=== PATIENT | female | born 1955 | race Caucasian/White ===

== ENCOUNTER → 2017-09-21 | Outpatient (CLI) | payer OTHER, MEDICARE ==
[~2017-09-21] MED LIST: ABILIFY10 MG PO; AGGRENOX 25 MG1 EACH PO; AMITRIPTYLINE H25 M2 PO; BACTRIM DS TAB1 EACH PO; CENTRUM SILVER1 EAC4 PO; CRESTOR10 MG PO; EFFEXOR XR75 MG PO; FISH OIL 1,001000 M2 PO; FLAGYL500 MG PO; FLOMAX0.4 MG PO; GLYBURIDE 5 MG T5 M1 PO; HYDROCODONE-AP1 EAC6 PO; HYDROCODONE-APA1 TA1 PO; KEFLEX500 MG PO; LANTUS SOL100 UNIT/1 SQ; LEVOTHYROXINE0.05 MG PO; LISINOPRIL5 MG PO; LOMOTIL TABLET1 EACH PO; MACRODANTIN100 MG PO; METFORMIN HCL500 MG PO; NORCO 7.5-3251 EACH PO; NOVOLOG100 UNIT/1 SUBQ; NUEDEXTA 20-101 EACH PO; NYSTATIN 100,0015 G1 TP; OMEPRAZOLE20 M2 PO; PRAVACHOL40 MG PO; PRILOSEC20 MG PO; PROAIR HFA8.5 GM INH; SPIRIVA INH; TESSALON PERLE100 MG PO; VITAMIN D1000 UNI1 PO; VOLTAREN GEL 1100 G2 TOP; ZANAFLEX4 MG PO; ZOFRAN ODT4 MG PO
== END ==
LOC: M.WC 07:33
DX: E11.622 Type 2 diabetes mellitus with other skin ulcer (principal); L89.153 Pressure ulcer of sacral region, stage 3; L98.491 Non-pressure chronic ulcer of skin of other sites limited to breakdown of skin; E11.65 Type 2 diabetes mellitus with hyperglycemia; I10 Essential (primary) hypertension; E03.9 Hypothyroidism, unspecified; E78.2 Mixed hyperlipidemia; G35 Multiple sclerosis; G47.30 Sleep apnea, unspecified; J44.9 Chronic obstructive pulmonary disease, unspecified; F03.90 Unspecified dementia, unspecified severity, without behavioral disturbance, psychotic disturbance, mood disturbance, and anxiety; F33.1 Major depressive disorder, recurrent, moderate; Z85.118 Personal history of other malignant neoplasm of bronchus and lung; Z86.73 Personal history of transient ischemic attack (TIA), and cerebral infarction without residual deficits; Z68.23 Body mass index [BMI] 23.0-23.9, adult

== ENCOUNTER → 2017-09-28 | Outpatient (CLI) | payer OTHER, MEDICARE | LOC: M.WC 01:32 | DX: E11.622 Type 2 diabetes mellitus with other skin ulcer (principal); L89.153 Pressure ulcer of sacral region, stage 3; L98.491 Non-pressure chronic ulcer of skin of other sites limited to breakdown of skin; I10 Essential (primary) hypertension; E78.2 Mixed hyperlipidemia; E03.9 Hypothyroidism, unspecified; G35 Multiple sclerosis; G47.30 Sleep apnea, unspecified; J44.9 Chronic obstructive pulmonary disease, unspecified; F33.1 Major depressive disorder, recurrent, moderate; F03.90 Unspecified dementia, unspecified severity, without behavioral disturbance, psychotic disturbance, mood disturbance, and anxiety; Z85.118 Personal history of other malignant neoplasm of bronchus and lung; Z86.73 Personal history of transient ischemic attack (TIA), and cerebral infarction without residual deficits; Z87.891 Personal history of nicotine dependence ==

== ENCOUNTER → 2017-10-05 | Outpatient (CLI) | payer OTHER, MEDICARE | LOC: M.WC 03:29 | DX: E11.622 Type 2 diabetes mellitus with other skin ulcer (principal); L98.491 Non-pressure chronic ulcer of skin of other sites limited to breakdown of skin; L89.153 Pressure ulcer of sacral region, stage 3; Z85.118 Personal history of other malignant neoplasm of bronchus and lung; G35 Multiple sclerosis; E78.2 Mixed hyperlipidemia; F33.1 Major depressive disorder, recurrent, moderate; Z68.23 Body mass index [BMI] 23.0-23.9, adult; J44.9 Chronic obstructive pulmonary disease, unspecified; Z86.73 Personal history of transient ischemic attack (TIA), and cerebral infarction without residual deficits; E03.9 Hypothyroidism, unspecified; F03.90 Unspecified dementia, unspecified severity, without behavioral disturbance, psychotic disturbance, mood disturbance, and anxiety; Z87.891 Personal history of nicotine dependence ==

== ENCOUNTER → 2017-10-12 | Outpatient (CLI) | payer OTHER, MEDICARE | LOC: M.WC 01:51 | DX: E11.622 Type 2 diabetes mellitus with other skin ulcer (principal); L98.491 Non-pressure chronic ulcer of skin of other sites limited to breakdown of skin; L89.153 Pressure ulcer of sacral region, stage 3; G35 Multiple sclerosis; E78.2 Mixed hyperlipidemia; F33.1 Major depressive disorder, recurrent, moderate; I10 Essential (primary) hypertension; J44.9 Chronic obstructive pulmonary disease, unspecified; E03.9 Hypothyroidism, unspecified; F03.90 Unspecified dementia, unspecified severity, without behavioral disturbance, psychotic disturbance, mood disturbance, and anxiety; Z86.73 Personal history of transient ischemic attack (TIA), and cerebral infarction without residual deficits; Z68.23 Body mass index [BMI] 23.0-23.9, adult; Z85.118 Personal history of other malignant neoplasm of bronchus and lung; Z87.891 Personal history of nicotine dependence ==

== ENCOUNTER → 2017-10-19 | Outpatient (CLI) | payer OTHER, MEDICARE | LOC: M.WC 02:31 | DX: E11.622 Type 2 diabetes mellitus with other skin ulcer (principal); L98.491 Non-pressure chronic ulcer of skin of other sites limited to breakdown of skin; L89.153 Pressure ulcer of sacral region, stage 3; G35 Multiple sclerosis; E78.2 Mixed hyperlipidemia; F33.1 Major depressive disorder, recurrent, moderate; I10 Essential (primary) hypertension; J44.9 Chronic obstructive pulmonary disease, unspecified; E03.9 Hypothyroidism, unspecified; F32.9 Major depressive disorder, single episode, unspecified; F03.90 Unspecified dementia, unspecified severity, without behavioral disturbance, psychotic disturbance, mood disturbance, and anxiety; Z68.23 Body mass index [BMI] 23.0-23.9, adult; Z85.118 Personal history of other malignant neoplasm of bronchus and lung; Z86.73 Personal history of transient ischemic attack (TIA), and cerebral infarction without residual deficits; Z87.891 Personal history of nicotine dependence ==

== ENCOUNTER 2017-10-26 09:08 | Inpatient (IN) | payer OTHER, MEDICARE ==
[~2017-10-26] VITALS: Ht 152.4 cm; Wt 98.4 kg
[2017-10-26] VITALS (12 sets, daily range): BP systolic 91–116; BP diastolic 54–69
[~2017-10-26 09:08] MED LIST changes: -AMITRIPTYLINE H25 M2 PO; -CENTRUM SILVER1 EAC4 PO; -FISH OIL 1,001000 M2 PO; -FLAGYL500 MG PO; -FLOMAX0.4 MG PO; -LOMOTIL TABLET1 EACH PO; -MACRODANTIN100 MG PO; -NOVOLOG100 UNIT/1 SUBQ; -NUEDEXTA 20-101 EACH PO; -PRAVACHOL40 MG PO; -TESSALON PERLE100 MG PO; -VOLTAREN GEL 1100 G2 TOP; -ZANAFLEX4 MG PO; -ZOFRAN ODT4 MG PO
[2017-10-26 10:05] LABS: ABSOLUTE EOSINOPHILS 0.1 thou/uL (0.0-0.7); ABSOLUTE MONOCYTES 0.5 thou/uL (0.0-1.2); ABSOLUTE NEUTROPHILS 3.8 thou/uL (1.6-8.1); BASOPHILS 0.4 %; EOSINOPHILS 1.5 %; HEMATOCRIT 34.3 % (37.0-47.0); LYMPHOCYTES 18.1 %; MCH 30.3 pg (26.0-34.0); MCHC 32.1 g/dL (28.0-37.0); MCV 94.4 fL (80.0-100.0); MONOCYTES 9.3 %; MPV 7.6 fl. (7.2-11.1); NUCLEATED RBCS 0 /100WBC; PLATELET COUNT* 237 thou/uL (150-400); POLYS 70.7 %; RBC 3.63 mil/uL (4.20-5.00); WBC 5.4 thou/uL (4.0-11.0)
[2017-10-26 10:06] LABS: URINE BILIRUBIN NEGATIVE (Negative); URINE BLOOD TRACE (Negative); URINE COLOR YELLOW; URINE GLUCOSE-RANDOM NEGATIVE (Negative); URINE KETONES NEGATIVE (Negative); URINE NITRITE-REFLEX NEGATIVE (Negative); URINE PROTEIN NEGATIVE (Negative); URINE UROBILINOGEN 0.2 E.U./dl (0.2-1.0)
[2017-10-26 10:10] LABS: URINE CLARITY SL HAZY; URINE LEUKOCYTES-REFLEX 3+ (Negative)
[2017-10-26 10:13] LABS: INR 1.1; PROTIME 10.5 Seconds (9.20-11.50)
[2017-10-26 10:14] LABS: ANION GAP 7 mmol/L (7-16); BUN 20 mg/dL (7-18); CALCIUM 9.1 mg/dL (8.5-10.1); CHLORIDE 98 mmol/L (98-107); CO2 27 mmol/L (21-32); CREATININE 0.8 mg/dL (0.6-1.3); GLUCOSE 291 mg/dL (70-99); POTASSIUM 4.1 mmol/L (3.5-5.1); SODIUM 132 mmol/L (136-145)
[2017-10-26 10:14] LABS: SQUAMOUS 0-3 Few /LPF (0-3); WBC CLUMPS Few (None Seen)
[2017-10-26 10:18] LABS: AMORPHOUS PHOSPHATES Many /LPF (None Seen); BACTERIA-REFLEX None Seen /HPF (None Seen); CASTS None Seen /LPF (None Seen); MUCUS None Seen strn/LPF (None Seen); URINE RBC 3-10 Few /HPF (0-2)
[2017-10-26 10:24] LABS: ALBUMIN 2.4 g/dL (3.4-5.0); ALKALINE PHOSPHATASE 59 U/L (46-116); NT-PRO BRAIN NAT PEPTIDE 125 pg/mL (<300); SGOT 21 U/L (15-37); SGPT 16 U/L (30-65); TOTAL BILIRUBIN 0.2 mg/dL (<0.1-1.0); TOTAL PROTEIN 6.9 g/dL (6.4-8.2); TROPONIN-I LEVEL <0.06 ng/mL (<0.06)
[2017-10-26] MEDS ORDERED: ZOFRAN ODT4 MG PO (12:48)
[2017-10-26] MEDS ORDERED: LOMOTIL TABLET1 EACH PO (12:48)
[2017-10-26] MEDS ORDERED: PRAVACHOL40 MG PO (12:49)
[2017-10-26] MEDS ORDERED: FLAGYL500 MG PO (14:21)
[2017-10-26] MEDS ORDERED: MACRODANTIN100 MG PO (14:22)
[2017-10-26] MEDS ORDERED: FLOMAX0.4 MG PO (14:23)
[2017-10-26] MEDS ORDERED: ZANAFLEX4 MG PO (14:24)
[2017-10-26] MEDS ORDERED: AMITRIPTYLINE H25 M2 PO (14:26)
[2017-10-26] MEDS ORDERED: TESSALON PERLE100 MG PO (14:27)
[2017-10-26] MEDS ORDERED: FISH OIL 1,001000 M2 PO (14:30)
[2017-10-26] MEDS ORDERED: CENTRUM SILVER1 EAC4 PO (14:31)
--- NOTE | 2017-10-26 14:49 | NUR ---
PATIENT ADMITTED TO THE FLOOR AT 1220. DNR. AOX2, BUT FORGETFUL. REPEATS "OKAY" OVER AND OVER. STATES SHE GETS STUCK ON WORDS AND CONTINUES TO REPEAT THEM. SINIS TACH ON SUGAR CANE PLANTER. NORMOTENSIVE. AFEBRILE. ON ROOM AIR, WITH O2 SAT 98%. PATIENT END-STAGE M/S. CHAIR BOUND AT HOME, HAS WHEELCHAIR. PATIENT'S STATES THAT HE IS IN THE PROCESS OF PUTTING TRACKS IN FOR LIFT. POSITIVE FOR SEPSIS PROTOCOL. 2L BOLUS IN ER. NOW ON LACTATED RINGERS AT [address] BLAIR. PAIN REPORTED IN RIGHT LEG, WHICH IS CONTRACTED AND HAS MUSCLE SPASMS. WENT HOME TO GET UPDATED MEDICATION LIST, PATIENT TAKES MUSCLE RELAXER AND CREAM FOR SPASMS. PRN HYDROCODNE GIVEN AND PATIENT NOW RESTING COMFORTABLY. WILL CONTINUE TO WORK ON CARE PLAN.
[2017-10-26] MEDS ORDERED: VOLTAREN GEL 1100 G2 TOP (14:54)
--- NOTE | 2017-10-26 15:55 | EKG ---
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 NGUYEN : 1955 Requested By: Robinson Chilel Order Number: [id number] MD: Zev Perez Measurements Intervals [place] Rate: 130 P: 53 DC: 191 QRS: 47 QRSD: 127 T: 85 QT: 354 QTc: 521 Interpretive Statements Sinus tachycardia Multiform ventricular premature complexes Aberrant conduction of SV complex(es) Consider left atrial enlargement Nonspecific intraventricular conduction delay Nonspecific T abnormalities, lateral leads No previous ECG available for comparison Electronically Signed On 10-26-2017 15:55:17 CDT by Zev Perez [email or web address] <ELECTRONICALLY SIGNED> By: Zev Perez MD, [facility] 10/26/17 1555 0913 0913 Zev Perez MD, [facility] /EPI
--- NOTE | 2017-10-26 17:26 | NUR ---
PATIENT PROGRESSING TOWARDS GOALS. REMAINS AOX4, BUT FORGETFUL. HR DECREASED TO 90S TO LOW 100S THROUGHOUT SHIFT. BPS REMAIN SOFT, BUT STABLE. LUNGS REMAIN CLEAR/DIMINISHED. LR INFUSING AT 120 ML/HR PER ORDERS. WOUND TO SACRUM CLEANED AND COVERED IN LARGE MEPILEX. WOUND CARE CONSULTED, PATIENT WAS IN WOUND CARE CENTER, BUT WAS UNABLE TO BE SEEN RELATED TO HYPOTENSION. PAIN IN RIGHT LEG CONTROLLED WITH PRN TIZANIDINE. NEEDS ASSITANCE WITH FEEDING. DENIES FURTHER NEEDS AT THIS TIME.
[2017-10-27] VITALS (11 sets, daily range): BP systolic 86–121; BP diastolic 48–69
--- NOTE | 2017-10-27 06:50 | NUR ---
ASSUMED PATIETN CARE AT 1900. NEEDLE SETTER AND HOURLY ROUNDING COMPLETED DOCUMENTED. FOEY CATH PLACED THIS AM PER PATIENT REQUEST. 500 ML OF VERY CLOUDY, YELLOW URINE. PORT PATENT TO IV FLUIDS. NO COMPLAINTS OF PAIN AFTER APPROX 2300. PATIENT ABLE TO TAKE MEDICATION WITH SMALL SIPS OF WATER. SM AMOUNT OF BM NOTED THIS AM. DRESSING TO COCYX AREA REMAINS INTACT AT THIS TIME.
[2017-10-27 09:28] LABS: ABSOLUTE EOSINOPHILS 0.1 thou/uL (0.0-0.7); ABSOLUTE MONOCYTES 0.6 thou/uL (0.0-1.2); ABSOLUTE NEUTROPHILS 3.8 thou/uL (1.6-8.1); BASOPHILS 0.6 %; EOSINOPHILS 1.7 %; HEMATOCRIT 28.8 % (37.0-47.0); HEMOGLOBIN 9.6 gm/dL (12.0-15.0); LYMPHOCYTES 18.2 %; MCH 31.5 pg (26.0-34.0); MCHC 33.3 g/dL (28.0-37.0); MCV 94.8 fL (80.0-100.0); MONOCYTES 10.4 %; MPV 7.5 fl. (7.2-11.1); NUCLEATED RBCS 0 /100WBC; PLATELET COUNT* 208 thou/uL (150-400); POLYS 69.1 %; RBC 3.04 mil/uL (4.20-5.00); RDW-CV 15.9 % (10.5-14.5); WBC 5.5 thou/uL (4.0-11.0)
[2017-10-27 09:30] LABS: CALCIUM 8.6 mg/dL (8.5-10.1); CREATININE 0.7 mg/dL (0.6-1.3); POTASSIUM 3.7 mmol/L (3.5-5.1)
--- NOTE | 2017-10-27 09:40 | NUR ---
WOUND NURSE: PATIENT SEEN FOR WOUND ASSESSMENT PERTAINING TO PRESSURE ULCER ON SACROCOCCYGEAL AREA. PRESENTS FOLLLOWS: 1.0 X 1.8 X 0.7 CM. FULL THICKNESS TISSUE LOSS WITH DARKER RED GRANULATION TISSUE IN THE WOUND BED. THERE IS A MODERATE AMOUNT OF SANCUINOUS DRAINAGE IN THE DRESSING. THERE IS A RING OF DARK PURPLISH-RED NONBLANCHEABLE PERIWOUND SKIN. PERIWOUND SKIN IS INTACT, BUT WITH HISTORY OF RASH WHICH WAS TREATED WITH NYSTATIN POWDER. CLEANSED WITH SOAP AND WATER, RINSED WITH WATER, THEN PATTED DRY. APPLIED SKIN PREP TO INTACT PERIWOUND TISSUE, PLACED STRIP OF AQUACEL AG UNDER A SQUARE OF AQUACEL AG, THEN COVERED WITH A BORDERED FOAM DRESSING. HEELMEDIX BOOT IS ON RIGHT FOOT AND LOWER LEG, HAS STAGE 1 PRESSURE ULCER ON THE RIGHT FOOT EVIDENCED WITH RED, NONBLANCHEABLE SKIN. PATIENT IS ON A EVERY 2 HOUR TURN SCHEDULE FOR OFFLOADING OF WOUND. SPOUSE WAS INSTRUCTED ON MEASURES TO PROMOTE HEALING AND PREVENT FURTHER WOUND INJURY.
--- NOTE | 2017-10-27 11:49 | NUR ---
Nutrition: Pt admitted for pneumonia. Transferring up to tele today. Assessed for wound. On CHO control diet. Also, receiving vanilla Boost Glucose Control. Wt: 132#. Per ICU rounds, she is eating 100% with assistance. No nutrition interventions needed at this time. Low to Mild risk.
--- NOTE | 2017-10-27 13:44 | NUR ---
CM SPOKE TO THE PATIENT TO DISCUSS HOME SITUATION, DISCHARGE PLANNING, AND TO INFORM OF THE ROLE OF CM. PATIENT ALERT AND ORIENTED. PATIENTS SPOUSE AT THE BEDSIDE AND ANSWERING SOME QUESTIONS FOR THE PATIENT. PATIENT BEDRIDDEN PRIOR TO ADMISSION. PATIENTS ASSIST WITH CARES AT HOME. PATIENT REQUIRES ASSISTANCE WITH MEALS. PATIENT HAS HOSPITAL BED, WHEELCHAIR, AND STAIR LIFT. PATIENTS ALSO INFORMS THAT THEY ARE CURRENTLY INSTALLING A LIFT SYSTEM IN THEIR HOME. PATIENT CURRENTLY ON-SERVICE WITH [facility] (PT/OT AND NURSING) AND WOULD LIKE TO CONTINUE THEIR SERVICES AT D/C. PATIENT AND SPOUSE INFORM THAT THEY PLAN IS FOR THE PATIENT TO RETURN HOME AT D/C. CM WILL REMAIN AVAILABLE TO ASSIST AND FOLLOW NEEDED.
--- NOTE | 2017-10-27 14:15 | NUR ---
RECIEVED O.T. EVAL AND TX ORDERS. PT. IS AT BASELINE NEEDING ASSIST WITH FEEDING AND THE REST OF ADLS. SPOUSE DOES MAX A/DEPENDENT BED TO W/C TRANSFERS. HE IS INSTALLING A LIFT TRACK SYSTEM IN THE HOUSE. SPOUSE IS AWARE OF REPOSITIONING SO HER PRESSURE SORE CAN HEAL. O.T. SERVICES ARE NOT INDICATED AT THIS TIME.
--- NOTE | 2017-10-27 18:55 | NUR ---
PT ALERT TO PERSON AND PLACE. REPORTED TO DR AND SPOUSE. BOTH DR AND SPOUSE SAY THIS IS TYPICAL OF PT. PT HAS DEMENTIA. PT REPOSITIONED. PT REQUIRING PAIN MEDICATION FREQUENTLY. ROTATING BETWEEN TOPICAL AND PO PAIN MEDICATION. PT FED MEALS. PT ATE 90% BREAKFAST 85% LUNCH AND 85% DINNER. PT DRINKING NUTRITIONAL SUPPLEMENTS. PT TRANSFERED TO TELE. FAMILY HAS BEEN WITH PT AND HELPS WITH MEALS. PER PT AND OT PT AT BASELINE ACTIVITY. PT ASKING ABOUT GOING HOME. DISCUSSED PLAN OF CARE WITH PT. [facility] CALLED AND REPORTED THEY NEEDED TO RECEIVE A REFERAL WHEN PT DISCHARGED.
[2017-10-28] VITALS (7 sets, daily range): BP systolic 95–117; BP diastolic 51–79
--- NOTE | 2017-10-28 02:56 | NUR ---
RECIEVED REPORT AND TOOK PT INTO CARE AT 1930. ASSESSMENT COMPLETED CHARTED. PT TURNED Q2HRS, RIGHT LEG CONTRACTED CAUSING PAIN AND GIVEN PRN, BOTTOM WOUND AND RIGHT TOE WOUND COVERED. PT RESTING AT THIS TIME, ABLE TO MAKE SOME NEEDS KNOWN, CALL LIGHT WITHIN REACH. A & O X 2, ON BEDREST, ORR PATIENT AND DRAINING YELLOW URINE W/O DIFFICULTY. WILL CONTINUE WITH PLAN OF CARE.
[2017-10-28 06:32] LABS: HEMOGLOBIN 9.6 gm/dL (12.0-15.0); MCH 31.2 pg (26.0-34.0); MCV 94.6 fL (80.0-100.0); MPV 7.1 fl. (7.2-11.1); RBC 3.06 mil/uL (4.20-5.00); RDW-CV 16.2 % (10.5-14.5); WBC 5.8 thou/uL (4.0-11.0)
[2017-10-28 06:48] LABS: ALBUMIN 1.9 g/dL (3.4-5.0); CALCIUM 8.4 mg/dL (8.5-10.1); CREATININE 0.6 mg/dL (0.6-1.3); TOTAL BILIRUBIN 0.2 mg/dL (<0.1-1.0); TOTAL PROTEIN 5.1 g/dL (6.4-8.2)
--- NOTE | 2017-10-28 09:44 | NUR ---
HESHAM p:[phone], f:[phone]. DC orders, facesheet and H&P will need to be faxed at ar.
--- NOTE | 2017-10-28 18:42 | NUR ---
ASSUMED PT CARE AT 0700 PT IS ALERT AND ORIENTED X 4 PT IS BEDREST PT IS A FALL RISK BED ALARM IS ON, PT IS TURNED Q [address] ON THE MONITOR, PT C/O PAIN GAVE PAIN MEDS THROUGHOUT SHIFT, PT HAS ANTIBIOTICS RUNNING WITH FLUIDS, PT HAS POWER PORT IN LEFT CHEST, PT IS PLEASANT AND COOPERATIVE, FAMILY IN ROOM, PT HEELS OFFLOADED, PT HAS ORR, PT IS A FEEDER PT HAS PERIODS OF FORGETFULNESS, WILL CONTINUE TO MONITOR
[2017-10-29 03:42] VITALS: BP 119/63
[2017-10-29 04:23] LABS: HEMATOCRIT 28.5 % (37.0-47.0); HEMOGLOBIN 9.4 gm/dL (12.0-15.0); MCH 30.9 pg (26.0-34.0); MCHC 32.9 g/dL (28.0-37.0); MPV 7.1 fl. (7.2-11.1); RBC 3.03 mil/uL (4.20-5.00); RDW-CV 16.4 % (10.5-14.5)
[2017-10-29 04:34] LABS: CALCIUM 8.6 mg/dL (8.5-10.1); CREATININE 0.6 mg/dL (0.6-1.3); POTASSIUM 3.6 mmol/L (3.5-5.1)
--- NOTE | 2017-10-29 05:06 | NUR ---
ASSUMED CARE OF PATIENT AT 1900 THE PATIENT REMAINS SR ON THE MONITOR O2 SAT MAINTAINED ON RA CONTINUES TO BEDREST THE ROUTINE REGIMEN CONTINUES TO BE EFFECTIVE FOR SX MANAGEMENT SAFETY INTERVENTIONS CONTINUE BED LOWERED WHEELS LOCKED CALL LIGHT IN REACH SIDE RAILS UP REPORT TO BE GIVEN TO JACKI JI
[2017-10-29 08:00] VITALS: BP 124/69
--- NOTE | 2017-10-29 10:07 | NUR ---
ASSUMED CARE OF PT AT 0730. PT RESTING IN BED. PT A&OX3, FORGETFUL AND CONFUSED AT TIMES. PT SCREAMS OUT AT TIMES. PT DENIES ANY PAIN OR SHORTNESS OF BREATH AT THIS TIME. PT TRACING ST ON THE OFFSET SECOND PRESS OPERATOR. ON RA SAT 94%. ORR TO DEPENDENT DRAINAGE. PT REQUIRES ASSIST WITH ALL MEALS. CONTRACTURES NOTED. IVF. PT TO HAVE CT CHEST TODAY. AM ASSESSMENT CHARTED. MEDICATIONS PER AUG. PT REPOSITIONED EVERY 2 HOURS FOR COMFORT. HOURLY ROUNDING OBSERVED. BED IN LOW POSITION. BED ALARM IN PLACE. FALL PRECAUTIONS IN PLACE. CALL LIGHT WITHIN REACH. WILL CONTINUE PLAN OF CARE.
[2017-10-29 13:05] VITALS: BP 111/71
[2017-10-29 17:23] VITALS: BP 122/71
--- NOTE | 2017-10-29 17:27 | NUR ---
NO ACUTE CHANGES THROUGHOUT SHIFT. REFER TO CHARTING. REMAINED AT BEDSIDE THROUGHOUT SHIFT. PT COMPLAINED OF PAIN TO BILATERAL LEGS. TREATED WITH PRN HYDROCODONE, MUSCLE RELAXER AND TOPICAL CREAM WITH PARTIAL RELIEF. PT REQUIRES ASSIST WITH ALL MEALS. PT HAD CT CHEST TODAY-REFER TO RESULTS. PULMONARY CONSULT IN PLACE FOR RLL MASS, HISTORY LUNG CANCER. PT BLOOD GLUCOSE 56 AT DINNER, JUICE AND CRACKERS GIVEN ALONG WITH DINNER. PT ASYMPTOMATIC WITH HYPOGLYCEMIA. PT CONTINUES TO TRACE ST ON THE PROGRAM COORDINATOR FOR RESIDENCE LIFE. ON RA SAT UPPER 90'S. DENIES ANY SHORTNESS OF BREATH. ORR TO DEPENDENT DRAINAGE. PT INCONT OF BOWEL TODAY. IVF AND IV ABX. CONTRACTURES NOTED. MEDICATIONS PER AUG. PT REPOSITIONED EVERY 2 HOURS FOR COMFORT. HOURLY ROUNDING OBSERVED. BED IN LOW POSITION. BED ALARM IN PLACE. FALL PRECAUTIONS IN PLACE. CALL LIGHT WITHIN REACH. WILL CONTINUE PLAN OF CARE.
[2017-10-29 19:56] VITALS: BP 120/73
[2017-10-29 23:52] VITALS: BP 115/64
--- NOTE | 2017-10-30 02:50 | NUR ---
RECIEVED REPORT AT 1930. ASSESSMENT COMPLETED CHARTED. ABLE TO MAKE SOME NEEDS KNOWN, A & O X 3-4, C/O RIGHT LEG PAIN R/T CONTRACTURE. PT Q2HR TURNS, STAYS OFF BOTTOM DUE TO STAGE 4 COXXYX WOUND. ABT RUNNING IN LAC AND LEFT CHEST PORTACATH WITH NO DIFFICULTY. WILL CONTINUE WITH PLAN OF CARE.
[2017-10-30 04:18] VITALS: BP 112/61
[2017-10-30 08:00] VITALS: BP 97/52
[2017-10-30] MEDS ORDERED: NUEDEXTA 20-101 EACH PO (10:39)
[2017-10-30 12:16] VITALS: BP 110/67
[2017-10-30 16:17] VITALS: BP 97/46
[2017-10-30 19:07] VITALS: BP 127/72
--- NOTE | 2017-10-30 19:54 | NUR ---
ASSUMED PT CARE AT 0730, FULL ASSESMENT DONE CHARTED, PT ORIENTED X3, FORGETFUL AT TIMES, IS DROWSY. BLOOD SUGAR LOW THIS AM, PT GIVEN JUICE AND FOOD AND BP INCREASED. PT DENIED PAIN THIS AM BUT C/O PAIN IN THE AFTERNOON IN LEGS. PT BEGAN CRYING THIS AM, ARRIVED AND STATES SHE TAKES NUEDEXTA, BROUGHT IT FROM HOME, WILL GIVE TO PT THIS EVEING. XANEX ALSO GIVEN. PT ST ON THE MONITOR, VSS. WAS GOING TO HAVE THORACENTESIS, DR HO CANCELED DUE TO LOW AMOUNT OF FLUID. PT AND UPDATED ON PLAN OF CARE. PTS WOUND TO SACRUM HEALING, DRESSING CHANGED. PT TURNED Q2 HR. FALL PRECATUIONS IN PLACE, REPROT GIVEN TO SCAR JI.
[2017-10-30 20:00] VITALS: BP 119/63
[2017-10-31 00:51] VITALS: BP 118/69
[2017-10-31 04:43] VITALS: BP 122/70
--- NOTE | 2017-10-31 07:01 | NUR ---
ASSUMED CARE OF PATIENT AT [address] ON THE MONITOR O2 SAT MAINTAINED ON 2LNC DURING HS CONTINUES TO BE BEDREST FREQUENT COMPLAINTS OF PAIN,ANXIETY THE ROUTINE REGIMEN CONTINUES TO BE EFFECTIVE FOR SX MANAGEMENT RECEIVED HYDROCODONE X 2 DOSES AND ZANAFLEX X 2 PAIN CREAM APPLIED X 2 PRN XANAX X 1 DOSE DURING SHIFT SAFETY INTERVENTIONS CONTINUE BED LOWERED WHEELS LOCKED CALL LIGHT IN REACH SIDE RAILS UP REPORT TO BE GIVEN TO ONCOMING GARRISON
--- NOTE | 2017-10-31 07:40 | CON ---
[address] [address] CONSULTATION Name: CARY WALKER Josse Room: [address] IN .R.#: [id number] Admission: 10/26/17 Attend Phys: Ashley David MD Discharge: Date of : 51 Report #: [id number] THIS REPORT FOR: //name// CC: Rob David REQUESTING PHYSICIAN: Malvin Ivan MD REASON FOR CONSULTATION: Abnormal CT scan. DISCUSSION: The patient is a 62-year-old woman who has a history of a prior stroke, multiple sclerosis. Also, recently was diagnosed with small cell lung cancer, completed radiation and chemotherapy. The exact location where she had her intrathoracic disease is unknown. She was actually admitted here on 10/26/2017 after being seen in the wound care clinic. She was being evaluated for a sacral decubitus ulcer. She was hypotensive and did not look well. She was found to have pneumonia as well as urinary tract infection. She was treated with fluids; was initially, I believe, in the ICU. She has been afebrile throughout this hospital stay. Did have some tachycardia on admission that has improved, though she does continue with a mild resting tachycardia. O2 needs have been quite low, in fact she is on room air. Chest x-ray had revealed pulmonary infiltrates on admission. She clinically was improving. However, she had a CT scan done of her chest yesterday without contrast. This showed infiltrates present on the right as well as a pleural effusion. Some of the densities on the right almost mass like. We were asked to see her. She has had followup with her oncologist (Dr. Engle). Does indicate that she has been through radiation therapy as well as chemotherapy. The whole brain radiation was not pursued given her other medical problems. She makes note that she had "multiple complications" from her chemotherapy, though it is not clear what those were. It is not clear again what the status or the extent of her disease was and which lung it involved. The patient is really not able to tell me that. She does make a note, however, that when she was last seen in the office, there was no evidence of recurrence. She is a former smoker, quitting just over 10 years ago. At that time, she has had a CVA. She also has possible multiple sclerosis. It is extremely limited neurologically. Does require help with feeding. The patient denies having any trouble with p.o. intake. She has not been evaluated by Speech here. She denies ever having a PEG tube. She does acknowledge that she has had prior episodes of pneumonia in [place] [address] CONSULTATION Name: CARY WALKER Room: [address] IN M.R.#: [id number] Admission: 10/26/17 Attend Phys: Ashley David MD Discharge: Date of : 51 Report #: [id number] MEDICATIONS: Currently, here in the hospital, she is on atorvastatin, venlafaxine, levothyroxine, Protonix, aripiprazole, Zosyn, Nystatin topically, insulin as needed, Zosyn, DuoNeb q.i.d., cholecalciferol, vancomycin, diclofenac, tizanidine, p.r.n. hydrocodone and p.r.n. Zofran. PAST MEDICAL HISTORY: Remarkable for the CVA in 2006, probable multiple sclerosis is noted. She has also had a right inguinal abscess requiring drainage, prior TIAs, hypertension, diabetes mellitus type 2, depression, prior urinary tract infections, issues with cellulitis, topical candidiasis. SOCIAL HISTORY: Former smoker as noted. FAMILY HISTORY: Negative for cancer. REVIEW OF SYSTEMS: Obtained from the patient. Denies any difficulty swallowing. No choking. Denies any pain. She does have a cough, but notes it is difficult to try and get sputum expectorated. She does struggle with this. Does report some discomfort in the sacral area. PHYSICAL EXAMINATION: APPEARANCE: Thin, cachectic, chronically ill appearing woman. She is awake, alert. She is answering questions. Generally, able to speak in full sentences. Seems somewhat emotionally labile this morning. Does start to cry easily. It is not clear what is triggering it and she is denying pain except for her sacral area. Denies shortness of breath. So when queried as to why she was crying, she notes she was trying to cough and clear out her secretions. She looks chronically ill. HEENT: Mucous membranes are look dry. NECK: Negative for definite adenopathy. She has a left Port-A-Cath in place. HEART: Tones are regular and mildly tachycardic, currently just over 100 beats per minute. No S3 is heard. LUNGS: Reveal few crackles heard on the right. May have some decreased breath sounds lower part of the left lung, but it is difficult to tell as she is on her side. ABDOMEN: Soft. She denies any tenderness to palpation. EXTREMITIES: Thin with muscle wasting. No definite edema is noted. LABORATORY AND X-RAY FINDINGS: Chest x-ray on admission was reviewed. CT chest done yesterday. She has almost mass-like infiltrate seen on the right side. Moderate size right pleural effusion. We have no other chest x-rays or CT scans for the last couple of years to do a comparison with. On her chemistry, BUN is 9, creatinine is 0.6, potassium is 3.6. Total protein 5.1 with an albumin of 1.9. White blood cell count 5000, hemoglobin 9.4, hematocrit 28.4, platelets 213,000. Prealbumin was 16.3. 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 [place] [address] CONSULTATION Name: CARY WALKER Room: [address] IN [facility]#: [id number] Admission: 10/26/17 Attend Phys: Ashley David MD Discharge: Date of : 51 Report #: [id number] IMPRESSION: 1. Pneumonia, clinically is improving. Blood pressure is better. Low O2 need. She denies symptoms, possibly this could be an aspiration pneumonia, does need to be considered. 2. History of small cell lung cancer, status post chemo and radiation. Reportedly, last imaging studies had not revealed evidence of recurrence or progression of disease. Again, however, those reports and details of the Cancer Center not available here. 3. Right pleural effusion. Maybe parapneumonic. Could also be third spacing given her low protein stores. 4. History of prior cerebrovascular accident and multiple sclerosis. Unfortunately, with her generalized debility, she is at risk for development of pneumonia. 5. Anemia maybe in part related to her cancer and the treatment. RECOMMENDATIONS: 1. Would continue to treat her pneumonia. Consider followup imaging in the form of a CAT scan when she follows up with Oncology. 2. Given the size of the pleural fluid collection noted on a recent CT chest, may not be unreasonable to ask IR to evaluate for possible thoracentesis. Would like to make sure she does not have a parapneumonic effusion or empyema. 3. May also need to consider swallow evaluation. 4. Long-term prognosis certainly appears guarded. <ELECTRONICALLY SIGNED> By: Jeni López MD 10/31/17 0740 1042 0056Jeni López MD /nt
[2017-10-31 08:00] VITALS: BP 107/59
--- NOTE | 2017-10-31 09:14 | NUR ---
assumed pt care at 0730, full assesment done as charted. pt oriented to self and situation, she is very confused this am, Suresh says this is unusual for her. pt sitting up in bed eating breakfast, drinking boost. pt denies pain at this time. had a bm this am. repositioned q2 hr. VSS, ST/PVC's on the monitor. will continue with plan of care.
[2017-10-31 11:58] VITALS: BP 94/54
[2017-10-31 12:36] LABS: HEMATOCRIT 32.2 % (37.0-47.0); HEMOGLOBIN 10.6 gm/dL (12.0-15.0); MCH 30.9 pg (26.0-34.0); MCHC 32.8 g/dL (28.0-37.0); MCV 94.3 fL (80.0-100.0); MPV 6.5 fl. (7.2-11.1); RBC 3.42 mil/uL (4.20-5.00); RDW-CV 16.1 % (10.5-14.5); WBC 5.7 thou/uL (4.0-11.0)
[2017-10-31 12:42] LABS: CALCIUM 8.3 mg/dL (8.5-10.1); CREATININE 0.7 mg/dL (0.6-1.3); POTASSIUM 3.5 mmol/L (3.5-5.1)
--- NOTE | 2017-10-31 15:00 | EKG ---
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1955 Requested By: Ashley David Order Number: [id number] Reading MD: Anthony Briscoe Measurements Intervals [place] Rate: 112 P: 63 NH: 193 QRS: 36 QRSD: 68 T: QT: 390 QTc: 533 Interpretive Statements Sinus tachycardia Low voltage, precordial leads Nonspecific T abnormalities, diffuse leads Prolonged QT interval Compared to ECG 10/26/2017 09:13:04 Prolonged QT interval now present T-wave abnormality still present Electronically Signed On 10-31-2017 15:00:22 CDT by Anthony Briscoe [email or web address] <ELECTRONICALLY SIGNED> By: Anthony Briscoe MD, FACC 10/31/17 1500 1306 1306 Anthony Briscoe MD, [facility] /EPI
[2017-10-31 15:16] VITALS: BP 122/70
--- NOTE | 2017-10-31 15:33 | CON ---
[address] [address] CONSULTATION Name: DENISEHERMINIOBING Loaiza Room: [address] IN M.R.#: [id number] Admission: 10/26/17 Attend Phys: Ashley David MD Discharge: Date of : 51 Report #: [id number] THIS REPORT FOR: //name// CC: Rob David DATE OF SERVICE: 10/26/2017 REASON FOR CONSULTATION: Small cell lung cancer, pneumonia. REQUESTING PHYSICIAN: Dr. David. HISTORY OF PRESENT ILLNESS: The patient is a pleasant 62-year-old woman with history of multiple sclerosis and small cell lung cancer, who was seen by me within a month at cancer center. She had full evaluation for followup of small cell lung cancer. There was no detection of progression of disease. She had completed chemoradiation previously and had a very good result. She was seen in wound clinic for routine evaluation for sacral decubitus ulcer. She was found to have hypotension and she was sent to the Emergency Room. She was found to have UTI and infiltrates in the lung. The patient was admitted to the ICU for hydration, antibiotics and treatment of UTI and pneumonia. Oncology consult is requested. Today, she is feeling better. Does not have fevers or chills. Denies dysuria. Denies shortness of breath. She does not have complaints of cough. Denies headaches. PAST MEDICAL HISTORY: Significant for small cell lung cancer, multiple sclerosis, pneumonia and UTI. She has a history of C. diff and CVA. SOCIAL HISTORY: Has very supportive and very supportive family. Unfortunately, her son recently. She does not smoke currently. FAMILY HISTORY: Noncontributory. REVIEW OF SYSTEMS: See above. PHYSICAL EXAMINATION: GENERAL: Reveals a well-developed, well-nourished female, not in acute distress. VITAL SIGNS: Blood pressure 116/69, heart rate is 116, temperature 97.8 and respirations 12. HEENT EXAMINATION: No thrush. NECK: Supple. LUNGS: Clear. ABDOMEN: Soft. LABORATORY DATA: White count 5.4, hemoglobin 11.4 and platelets 237,000. [place] [address] CONSULTATION Name: CARY WALKER Room: [address]#: [id number] Admission: 10/26/17 Attend Phys: Ashley David MD Discharge: Date of : 51 Report #: [id number] Sodium 132, potassium 4.1, BUN 20 and creatinine 0.8. Urinalysis, +3 leukocytes, 10-25 white cells and trace blood. RADIOLOGIC DATA: Chest x-ray shows perihilar and infrahilar pulmonary infiltrates. ASSESSMENT AND PLAN: 1. Small cell lung cancer. The patient does not have recurrence of disease according to recent scans. Completed chemoradiation therapy, responded very well. Because of her neurological status and multiple complications from chemotherapy, decision was made against prophylactic cranial irradiation. 2. Pneumonia. She probably has mild pneumonia changes on the chest x-ray. It could be related to radiation as well. At this point, I would continue to treat it as pneumonia as chest x-ray does not improve. If her condition does not improve, I would do CT scan. Otherwise, I will continue with regular surveillance scans at cancer center. 3. Urinary tract infection. I agree with management. Thank you very much for allowing me to participate in care of this patient. <ELECTRONICALLY SIGNED> By: Zohra Mahoney MD 10/31/17 1533 1613 Alexx Engle MD /nt
[2017-10-31 17:12] LABS: URINE BILIRUBIN NEGATIVE (Negative); URINE BLOOD TRACE (Negative); URINE CLARITY CLEAR; URINE COLOR YELLOW; URINE GLUCOSE-RANDOM NEGATIVE (Negative); URINE KETONES NEGATIVE (Negative); URINE LEUKOCYTES-REFLEX TRACE (Negative); URINE NITRITE-REFLEX NEGATIVE (Negative); URINE PROTEIN NEGATIVE (Negative); URINE SPECIFIC GRAVITY 1.015 (1.005-1.030)
[2017-10-31 17:36] LABS: BACTERIA-REFLEX None Seen /HPF (None Seen); CASTS None Seen /LPF (None Seen); CRYSTALS None Seen /LPF (None Seen); SQUAMOUS 4-10 Moderate /LPF (0-3); URINE RBC 0-2 Rare /HPF (0-2); URINE WBC-REFLEX 0-5 Rare /HPF (0-5)
[2017-10-31] MEDS ORDERED: NOVOLOG100 UNIT/1 SUBQ (17:39)
[2017-10-31 20:00] VITALS: BP 118/70
[2017-11-01 00:35] VITALS: BP 149/56
[2017-11-01 04:14] VITALS: BP 116/69
[2017-11-01 08:00] VITALS: BP 115/61
[2017-11-01 12:41] VITALS: BP 119/72
[2017-11-01 15:52] VITALS: BP 134/53
--- NOTE | 2017-11-01 19:07 | NUR ---
ASSUMED PT CARE AT 0730, FULL ASSESMENT DONE CHARTED. PT A/O X2, PT DROWSY, C/O PAIN IN RIGHT KNEE. PT NPO THIS AM FOR TESTING. PT DID EAT SMALL AMOUNGT OF LUNCH AND DINNER AND DRANK SOME BOOST. PT HAD VISITOR THIS EVENING, BECAME TEARFUL, XANEX GIVEN. NEW IV STARTED IN LEFT AC. PT TURNED Q2 HR. IS STILL HAVING LOOSE STOOLS MIXED WITH FORMED STOOL. UNABLE TO GET SAMPLE FOR CDIFF. FALL PRECATUIOINS IN PLACE. CALL LIGHT IN REACH. WILL CONTINUE WITH PLAN OF CARE
[2017-11-01 20:00] VITALS: BP 119/62
[2017-11-02 00:06] VITALS: BP 130/78
--- NOTE | 2017-11-02 03:18 | NUR ---
ASSUMED PT CARE AT 19:15 , REPORT RECEIVED FROM NURSE. PT IS ALERT , AWAKE, ORIENTED x4. SINUS TACHY ON THE MONITOR. VITALS SIGNS WITHIN THE NORMAL LIMIT. ASSESSMENT PERFORMED. REFER TO CHARTING. NO CONCERN STATED. DOES COMPAIN OF PAIN IN RIGHT KNEE AREA. TRAMADOL ADMINISTERED ALONG WITH OTHER MEDEICATIONS. Q2 HOURS TURNED PERFORMED AND PERINEUM CARE PROVIDED. SACRUM DRESSING CHANGED , WOUND IS WASHED WITH NORMAL SALINE AND NEW DRESSING PLACED ON. BARRIER CREAM APPLIED IN PERINEUM. IV LINES PATENT. ORR IN PLACE. OFFER SOME BOOST AND ASSIST WITH FEEDING.SLEEP PROMOTED BY DIM LIGHT, QUIETNESS. PT IS CURRENTLY RESTING IN BED. WILL CONTINUE TO MONITOR.
[2017-11-02 04:00] VITALS: BP 113/68
--- NOTE | 2017-11-02 08:00 | NUR ---
VSS, ASSUMED CARE IN THE AM, ASSESSMENT PERFORMED AND CHARTED, FALL PRECAUTIONS IN PLACE AND CALL LIGHT IN REACH, PT IS ON RA AND IS TRACING ST ON THE MONITOR, PT HAS PAIN IN HER RIGHT KNEE AND IS INCONT OF BOWEL, ORR IN PLACE AND IS DRAINING, PT IS A&O3-4 FORGETFUL, IS A Q2 TURN AND REMAINS IN ISO FOR C-DIFF, PT GOAL IS TO PERFORM PASSIVE ROM, WILL FOLLOW WITH PLAN OF CARE.
[2017-11-02 09:00] VITALS: BP 125/65
[2017-11-02 12:17] VITALS: BP 119/68
[2017-11-02 16:22] VITALS: BP 122/76
[2017-11-03] VITALS: BP 108/57
[2017-11-03 04:00] VITALS: BP 121/74
--- NOTE | 2017-11-03 05:49 | NUR ---
ASSUMED PT CARE AT 19;15. REPORT RECEIVED FROM NURSE. PT IS ALERT, AWKAKE, ORIETNED X 4. ;LAYING IN BED. ON CONTACT PRECAUTION. \VITAL SIGNS TAKEM RESULTS ARE WITHIN NORMAL LIMIT ASSESSMENT PERFORMED. IV LINES ARE PATENT. PT TURNESED. TO BE TURNED Q2 HOURS FOR THE WHOLE SHIFT,PT IS ON Q 2 PROTOCOLOL. INCONTENT. WOUND CARE PROVIDED. DRESSING CHANGED BECUSE IT WAS DIRTY. P DOES NOT COMPLAIN OF ANY PAIN . SHE DOES HAVE A LIDOCAINE PATCH ON THE RIGHT KNEE. ORR CATHERTER IN PLACE. SINUS TACCY ON THE MONITOR . IV ANTIBIOTICS ADMINISTERED.
[2017-11-03 05:57] LABS: HEMATOCRIT 33.1 % (37.0-47.0); HEMOGLOBIN 10.8 gm/dL (12.0-15.0); MCH 30.4 pg (26.0-34.0); MCHC 32.6 g/dL (28.0-37.0); MCV 93.2 fL (80.0-100.0); MPV 6.8 fl. (7.2-11.1); RBC 3.55 mil/uL (4.20-5.00); RDW-CV 15.8 % (10.5-14.5); WBC 5.9 thou/uL (4.0-11.0)
[2017-11-03 06:21] LABS: CALCIUM 8.5 mg/dL (8.5-10.1); CREATININE 0.6 mg/dL (0.6-1.3); MAGNESIUM 1.5 mg/dL (1.8-2.4); POTASSIUM 3.2 mmol/L (3.5-5.1)
[2017-11-03 07:54] VITALS: BP 115/67
--- NOTE | 2017-11-03 09:25 | NUR ---
ASSUMED CARE OF PT THIS AM AROUND 0715- INVESTMENT RECOVERY TECHNICIAN IN PLACE ORDERED, TRACING ST THIS AM- UPON ASSESSMENT PT NOTED TO BE RESTING IN BED, EYES CLOSED- PT A&O X3- ORR IN PLACE D/D CLEAR PILY URINE, INCONTINENT OF BOWEL- BED REST IN PLACE WITH Q 2HOUR TURNS- ISOLATION IN PLACE R/T C-DIFF AND MAINTIANED INDICATED- DIMINISHED LUNG SOUNDS NOTED, RESP EVEN AND UN-LABORED- VSS, O2 SAT 96% ON RA- ABDOMEN SOFT/FLAT/NON-TENDER, BS X4 QUADS- PT NOTED TO HAVE LOOSE BM THIS AM- CONTRACTORS NOTED IN UE AND LE- BOOTS IN PLACE TO BILATERAL FEET INDICATED- DRESSING TO COCCYX REPORTED TO BE CHANGED ON PRIOR SHIFT R/T BEING SOILED- DRESSING REMIANS C/D/I THIS AM- IV NOTED TO LEFT AC INTACT AND SL- LEFT CHEST PORT IN PLACE WITH NO S/S INFECTION- IV ABT INFUSSING THIS AM PRESCIBED- K+ NOTED ATY 3.2, AND MAG 1.5- NOTIFIED WITH ELECTROLYTE REPLACEMENT ORDERED, WILL BE REPLACED THIS SHIFT PER PROTOCOL- PT NOTED TO BE MOANING AND CRYIN IN RELATION TO RIGHT KNEE PAIN- PT REPOSITIONED WITH PRN TRAMADOL GIVEN AT 0901- POOR PO INTAKE NOTED THIS AM WITH BREAKFAST- CALL LIGHT AND PERSONAL BELONGINGS WITH IN REACH- HOULRY ROUNDS IN PLACE R/T SAFETY/NEEDS- ALL NEEDS MET AT THIS TIME-[facility]
[2017-11-03 12:00] VITALS: BP 90/50
--- NOTE | 2017-11-03 12:14 | NUR ---
WOUND CARE NOTE: REASSESSMENT OF SACROCOCCYGEAL WOUND. FULL THICKNESS PRESSURE ULCER, UNSTAGEABLE. CHINYERE-WOUND DESTRUCTION IS RED, MOIST. CENTER OF WOUND BED IS PALE, YELLOW. SCANT AMOUNTS OF DRAINAGE. WOUND IN ITS ENTIRETY NOW MEASURES 2.5X3X0.5. CLEANSED WOUND WITH WOUND CLEANSER, PATTED DRY. APPLIED AQUACEL AG TO WOUND BED AND SECURED WITH BORDERED FOAM. PATIENT ALSO HAS AN ULCERATION POSTERIOR, CHINYERE-ANAL. BELIEVE THIS TO BE RELATED TO THE FREQUENT STOOLS. APPLIED THE BORDERED FOAM OVER THIS AREA. ASSISTED CLEANSING PATIENT AFTER INCONTINENT OF STOOL EPISODE. PATIENT WAS TURNED TO LEFT SIDE. EDUCATED PATIENT ON FIDINGS OF WOUND ASSESSMENT AND ENCOURAGED TO KEEP OFF OF THE WOUND BY TURNING SIDE TO SIDE. IN ROOM AND HELPS WITH TURNS AND CLEANSING PATIENT. RECOMMEND LOW AIR LOSS MATTRESS-EDUCATED PATIENT AND SPOUSE ON THIS, COMMUNICATED UNDERSTANDING. RECOMMEND CONTINUE WITH CURRENT POC ADD LOW AIR LOSS MATTRESS ENCOURAGE GOOD NUTRITION FOLLOW UP IN WOUND CENTER UPON DISCHARGE.
[2017-11-03 16:32] VITALS: BP 108/56
[2017-11-03 18:37] LABS: MAGNESIUM 1.5 mg/dL (1.8-2.4); POTASSIUM 3.8 mmol/L (3.5-5.1)
[2017-11-03 20:00] VITALS: BP 98/56
[2017-11-04 00:15] VITALS: BP 114/64
--- NOTE | 2017-11-04 04:13 | NUR ---
ASSUMED CARE OF PT AT 1930. PT OBSERVED RESTING WITH EYES CLOSED. NURSING ASSESSMENT COMPLETED AT START OF SHIFT, PT ON BLANK DRILLER TRACING SINUS RHYTHM. Q2H REPOSITIONING COMPLETED, HOURLY ROUNDING COMPLETED, PT CONTINUES TO HAVE DIARRHEA THIS SHIFT, FALL PRECAUTIONS IN PLACE, MAGNESIUM REPLACED, SEE EMAR FOR DOCUMENTATION. PRN PAIN MEDICATION ADMINISTERED THIS SHIFT. CALL LIGHT WITHIN REACH.
[2017-11-04 04:15] VITALS: BP 131/70
[2017-11-04 08:00] VITALS: BP 112/62
--- NOTE | 2017-11-04 11:06 | NUR ---
OT REVIEWED PT FILE. PT IS AT HER BASELINE. PT IS BEDRIDDEN AND REQUIRES ASSIST WITH ALL SELF-CARES, USES A LIFT FOR MOBILITY. PER NOTES, SPOUSE UNDERSTANDS POSITIONING NEEDS AND HOW TO OFF-LOAD WEIGHT TO HEAL PRESSURE SORE. DISCHARGE OT ORDER
--- NOTE | 2017-11-04 11:29 | NUR ---
P.T. ORDERS RECEIVED TODAY, 11/04/17. ORDERS PREVIOUSLY RECEIVED AND EVAL COMPLETED 10/26/17. PT DISCHARGED FROM P.T. SERVICES SHE IS FUNCTIONING AT BASELINE. PT IS PRIMARILY DEPENDENT FOR CARES, PROVIDED BY SPOUSE. SHE IS DEPENDENT FOR TRANSFERS WITH MANUAL OR MECHANICAL LIFT. PER O.T. SPOUSE HAS INDICATED UNDERSTANDING OF OFF-LOADING FOR SKIN PROTECTION. ACUTE P.T. INTERVENTION NOT INDICATED AT THIS TIME.
[2017-11-04 12:00] VITALS: BP 107/58
[2017-11-04 12:35] LABS: CALCIUM 8.4 mg/dL (8.5-10.1); CREATININE 0.7 mg/dL (0.6-1.3); POTASSIUM 3.5 mmol/L (3.5-5.1)
[2017-11-04 15:13] VITALS: BP 107/58
--- NOTE | 2017-11-04 15:16 | NUR ---
Pt to dc home today with services. JAGUAR faxed referral, orders, med list to [facility] at fax number [phone]. JAGUAR called [facility] intake and spoke with Rubina who said that pt was active with [facility] and that they would see pt tomorrow, Sunday 11/05.
[2017-11-04 16:00] VITALS: BP 100/58
--- NOTE | 2017-11-04 19:05 | NUR ---
ASSUMED PT CARE AT 0730, FULL ASSESMENT DONE CHARTED. PT A/O X3, SLIGHTLY FORGETFUL. PTS VSS, SR-ST ON THE MONITOR WITH PVC'S. DISCHARGE ORDERS RECIEVED FOR PT TO GO HOME, DISCUSSED THE PLAN WITH DR STEWART ABOUT IF HE THINKS PT NEEDS SKILLED. SPOKE TO PTS , HE STATES PT HAS REFUSED SKILLED IN THE PAST. PHYSICAL THERAPY WAS RECONSULTED TO EVALUATE, PT STATES THAT PT IS AT BASELINE. PTS COCCYX WOUND ASSESED, DRESSING CHANGED AND DISCHARGE PICTURES TAKEN. CHEST PORT DEACCESED,REVIEWED MEDS AND DISCHARGE PLAN WITH PT AND . PT LEFT UNIT AT APPROX 1800
== END 2017-11-04 17:48 | disposition home health service (06) | DRG 689 ==
LOC: M.TBA-ER 11:13 → M.2W 11:13 → M.ICU 12:15 → M.2W 10-27 12:15
PROVIDERS: Emergency Medicine Emergency Medical Services; Family Medicine; Internal Medicine; ADMIT Internal Medicine
DX: N39.0 Urinary tract infection, site not specified (principal); J18.9 Pneumonia, unspecified organism; I69.951 Hemiplegia and hemiparesis following unspecified cerebrovascular disease affecting right dominant side; J90 Pleural effusion, not elsewhere classified; R65.10 Systemic inflammatory response syndrome (SIRS) of non-infectious origin without acute organ dysfunction; A04.72 Enterocolitis due to Clostridium difficile, not specified as recurrent; I95.9 Hypotension, unspecified; E11.9 Type 2 diabetes mellitus without complications; I10 Essential (primary) hypertension; J44.9 Chronic obstructive pulmonary disease, unspecified; F32.9 Major depressive disorder, single episode, unspecified; D64.9 Anemia, unspecified; Z66 Do not resuscitate; R91.8 Other nonspecific abnormal finding of lung field; R53.83 Other fatigue; Z92.21 Personal history of antineoplastic chemotherapy; Z87.891 Personal history of nicotine dependence; Z79.82 Long term (current) use of aspirin; Z79.899 Other long term (current) drug therapy; Z85.118 Personal history of other malignant neoplasm of bronchus and lung

== ENCOUNTER 2017-11-10 10:49 | Inpatient (IN) | payer OTHER, MEDICARE ==
[~2017-11-10] VITALS: Ht 160 cm; Wt 62.3 kg
[2017-11-10 11:09] VITALS: BP 97/55
[2017-11-10 11:49] LABS: ABSOLUTE LYMPHOCYTES 0.6 thou/uL (0.8-5.3); ABSOLUTE MONOCYTES 0.5 thou/uL (0.0-1.2); ABSOLUTE NEUTROPHILS 4.8 thou/uL (1.6-8.1); BASOPHILS 0.3 %; EOSINOPHILS 0.7 %; HEMATOCRIT 34.4 % (37.0-47.0); HEMOGLOBIN 11.2 gm/dL (12.0-15.0); MCH 30.8 pg (26.0-34.0); MCHC 32.6 g/dL (28.0-37.0); MCV 94.6 fL (80.0-100.0); MPV 7.5 fl. (7.2-11.1); NUCLEATED RBCS 0 /100WBC; PLATELET COUNT* 237 thou/uL (150-400); RBC 3.64 mil/uL (4.20-5.00); RDW-CV 16.1 % (10.5-14.5)
[2017-11-10 11:53] LABS: CALCIUM 9.4 mg/dL (8.5-10.1); POTASSIUM 4.4 mmol/L (3.5-5.1)
[2017-11-10 11:55] LABS: APTT 25.9 Seconds (25.0-31.3); INR 1.1; PROTIME 10.5 Seconds (9.20-11.50)
[2017-11-10 11:58] LABS: ALBUMIN 2.6 g/dL (3.4-5.0); TOTAL BILIRUBIN 0.2 mg/dL (<0.1-1.0); TOTAL PROTEIN 7.3 g/dL (6.4-8.2)
[2017-11-10 12:34] LABS: BE 1.3 mmol/L (-2 to +3); HCO3 28.2 mmol/L (22.0-26.0)
[2017-11-10 12:35] LABS: PO2 VENOUS 32.6 mmHg (35.0-45.0)
[2017-11-10 12:39] LABS: URINE BILIRUBIN NEGATIVE (Negative); URINE BLOOD 1+ (Negative); URINE CLARITY CLOUDY; URINE COLOR YELLOW; URINE GLUCOSE-RANDOM 1+ (Negative); URINE KETONES TRACE (Negative); URINE NITRITE-REFLEX NEGATIVE (Negative); URINE PROTEIN 1+ (Negative); URINE SPECIFIC GRAVITY 1.015 (1.005-1.030); URINE UROBILINOGEN 0.2 E.U./dl (0.2-1.0)
[2017-11-10 12:40] LABS: URINE LEUKOCYTES-REFLEX 2+ (Negative)
[2017-11-10 12:43] LABS: BACTERIA-REFLEX None Seen /HPF (None Seen); CASTS None Seen /LPF (None Seen); MUCUS None Seen strn/LPF (None Seen); SQUAMOUS 0-3 Few /LPF (0-3); URINE WBC-REFLEX >25 Many /HPF (0-5); WBC CLUMPS Many (None Seen)
[2017-11-10 12:44] LABS: AMORPHOUS PHOSPHATES Many /LPF (None Seen)
[2017-11-10 14:10] VITALS: BP 101/58
[2017-11-10 14:25] VITALS: BP 103/65
[2017-11-10 16:17] VITALS: BP 112/60
[2017-11-10 20:00] VITALS: BP 90/54
[2017-11-11] VITALS: BP 98/50
[2017-11-11 04:00] VITALS: BP 108/62
[2017-11-11 04:40] LABS: ABSOLUTE EOSINOPHILS 0.1 thou/uL (0.0-0.7); ABSOLUTE LYMPHOCYTES 0.9 thou/uL (0.8-5.3); ABSOLUTE MONOCYTES 0.6 thou/uL (0.0-1.2); ABSOLUTE NEUTROPHILS 3.4 thou/uL (1.6-8.1); BASOPHILS 0.6 %; EOSINOPHILS 1.4 %; HEMATOCRIT 27.4 % (37.0-47.0); LYMPHOCYTES 17.7 %; MCH 31.3 pg (26.0-34.0); MCHC 33.5 g/dL (28.0-37.0); MCV 93.4 fL (80.0-100.0); MONOCYTES 12.1 %; MPV 7.5 fl. (7.2-11.1); NUCLEATED RBCS 0 /100WBC; PLATELET COUNT* 211 thou/uL (150-400); POLYS 68.2 %; RBC 2.93 mil/uL (4.20-5.00)
[2017-11-11 04:44] LABS: HEMOGLOBIN 9.2 gm/dL (12.0-15.0)
[2017-11-11 04:49] LABS: CALCIUM 8.5 mg/dL (8.5-10.1); CREATININE 0.6 mg/dL (0.6-1.3); POTASSIUM 3.9 mmol/L (3.5-5.1)
[2017-11-11 07:55] VITALS: BP 77/48
[2017-11-11 12:00] VITALS: BP 96/52
[2017-11-11 20:00] VITALS: BP 124/67
[2017-11-12] VITALS: BP 114/68
[2017-11-12 04:00] VITALS: BP 115/60
[2017-11-12 05:06] LABS: ABSOLUTE EOSINOPHILS 0.1 thou/uL (0.0-0.7); ABSOLUTE LYMPHOCYTES 1.5 thou/uL (0.8-5.3); ABSOLUTE MONOCYTES 0.5 thou/uL (0.0-1.2); ABSOLUTE NEUTROPHILS 2.2 thou/uL (1.6-8.1); BASOPHILS 0.6 %; EOSINOPHILS 2.5 %; HEMATOCRIT 28.7 % (37.0-47.0); HEMOGLOBIN 9.6 gm/dL (12.0-15.0); LYMPHOCYTES 34.9 %; MCHC 33.3 g/dL (28.0-37.0); MPV 7.3 fl. (7.2-11.1); NUCLEATED RBCS 0 /100WBC; PLATELET COUNT* 233 thou/uL (150-400); RBC 3.09 mil/uL (4.20-5.00); RDW-CV 16.5 % (10.5-14.5); WBC 4.3 thou/uL (4.0-11.0)
[2017-11-12 05:26] LABS: CALCIUM 8.8 mg/dL (8.5-10.1); CREATININE 0.6 mg/dL (0.6-1.3); POTASSIUM 3.4 mmol/L (3.5-5.1); TOTAL BILIRUBIN 0.2 mg/dL (<0.1-1.0)
[2017-11-12 07:41] VITALS: BP 99/39
[2017-11-12 21:30] VITALS: BP 115/66
[2017-11-13 08:00] VITALS: BP 139/82
[2017-11-13 16:16] VITALS: BP 125/65
--- NOTE | 2017-11-13 20:24 | CON ---
[address] [address] CONSULTATION Name: CARY WALKER Room: [address] IN .R.#: [id number] Admission: 11/10/17 Attend Phys: Earnest Carmona MD Discharge: Date of : 51 Report #: [id number] THIS REPORT FOR: //name// CC: Earnest Carmona [facility] DATE OF SERVICE: 11/11/2017 HISTORY OF PRESENT ILLNESS: This is a 62-year-old female patient who was evaluated by me for any neurological etiology for the altered mental status. The patient's family and patient indicates that she had a severe confusion yesterday. She feels better. Her confusion is better, but is not resolved. REVIEW OF SYSTEMS: Indicate that she had a history of stroke in the past. 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 It is not clear if she becomes confused like this or not. She was having some nausea, vomiting also. There is no history of seizures. I carried out the 14-point review of system. She does have a history of diabetes, hypertension, CVA, lung cancer. This was her relevant 14-point review of system. PAST MEDICAL HISTORY: Positive for stroke. FAMILY HISTORY: Unremarkable. SOCIAL HISTORY: She is a former smoker. PHYSICAL EXAMINATION: Indicate that she is alert, she is responsive. She can follow simple command. She is not oriented. Her memory and fund of knowledge is poor. Cranial nerve examination 2-12 looks mostly unremarkable. She does not move the right side, but she moves the left side. There is no meningeal sign. There is no carotid bruit. She does have some respiratory issues, but that appeared to be at baseline. No change in cardiac status. Pulses are difficult to feel. She has no edema, cyanosis or jaundice. Blood pressure is 77/48. Temperature is 99, pulse is 81. Her hemoglobin is 9.2. Her BUN and creatinine is normal. She did have a CT which showed old stroke. IMPRESSION: This patient's symptoms are most likely secondary to metabolic encephalopathy. We will check an EEG in this patient. I discussed options with the family. Presently, we will just observe and do the [place] [address] CONSULTATION Name: CARY WALKER Room: [address] IN [facility]#: [id number] Admission: 11/10/17 Attend Phys: Earnest Carmona MD Discharge: Date of : 51 Report #: [id number] she deteriorates or have more problem. I discussed that aspect with the patient and the family and they are agreeable with this plan. <ELECTRONICALLY SIGNED> By: Keyon Burnett MD 11/13/17 2024 1101 1951Pandie Burnett MD /nt
--- NOTE | 2017-11-13 20:24 | EEG ---
[address] [address] EEG STUDY REPORT Name: CARY WALKER Room: [address] IN .R.#: [id number] Admission: 11/10/17 Attend Phys: Earnest Carmona MD Discharge: Date of : 51 Report #: [id number] THIS REPORT FOR: //name// CC: Earnest Carmona [facility] DATE OF SERVICE: 11/11/2017 This patient is being evaluated for altered mental status. EEG was done by placing the electrodes by standard 10-20 system of electrode placement. Both referential and sequential montages were used for recording. Background activity in this patient's EEG is about 8 Hz and 30 microvolt. The patient went to sleep that is associated with bilaterally symmetrical sleep spindle and vertex sharp waves. Photic stimulation was unremarkable. IMPRESSION: This patient's EEG is slow and poorly formed on both sides. That is a nonspecific abnormality, which can occur with encephalopathy, effect of psychotropic medication, dementia, etc. Clinical correlation is recommended. <ELECTRONICALLY SIGNED> By: Keyon Burnett MD 11/13/172023 29 36Keyon Burnett MD /nt
[2017-11-13 20:31] VITALS: BP 126/72
[2017-11-14 08:00] VITALS: BP 133/77
[2017-11-14 16:00] VITALS: BP 135/79
[2017-11-15 06:03] LABS: ABSOLUTE EOSINOPHILS 0.1 thou/uL (0.0-0.7); ABSOLUTE LYMPHOCYTES 1.1 thou/uL (0.8-5.3); ABSOLUTE MONOCYTES 0.5 thou/uL (0.0-1.2); ABSOLUTE NEUTROPHILS 2.9 thou/uL (1.6-8.1); BASOPHILS 0.9 %; EOSINOPHILS 2.4 %; HEMATOCRIT 29.7 % (37.0-47.0); HEMOGLOBIN 9.7 gm/dL (12.0-15.0); LYMPHOCYTES 23.9 %; MCH 30.7 pg (26.0-34.0); MCHC 32.8 g/dL (28.0-37.0); MCV 93.5 fL (80.0-100.0); MONOCYTES 11.6 %; MPV 7.1 fl. (7.2-11.1); NUCLEATED RBCS 0 /100WBC; PLATELET COUNT* 228 thou/uL (150-400); POLYS 61.2 %; RBC 3.18 mil/uL (4.20-5.00); WBC 4.7 thou/uL (4.0-11.0)
[2017-11-15 06:16] LABS: CALCIUM 8.4 mg/dL (8.5-10.1); CREATININE 0.6 mg/dL (0.6-1.3); POTASSIUM 3.5 mmol/L (3.5-5.1); TOTAL BILIRUBIN 0.3 mg/dL (<0.1-1.0); TOTAL PROTEIN 6.3 g/dL (6.4-8.2)
[2017-11-15 09:00] VITALS: BP 135/78
[2017-11-15 11:06] VITALS: BP 135/78
[2017-11-15 13:26] VITALS: BP 135/78
--- NOTE | 2017-11-22 12:20 | EEG ---
[address] [address] EEG STUDY REPORT Name: CARY WALKER Room: [address]R#: [id number] Admission: 11/10/17 Attend Phys: Earnest Carmona MD Discharge: 11/15/17 Date of : 51 Report #: [id number] THIS REPORT FOR: //name// CC: Earnest Carmona [facility] DATE OF SERVICE: 11/13/2017 This patient is being evaluated for altered mental status. EEG was done by placing the electrodes by standard 10-20 system of electrode placement. Both referential and sequential montages were used for recording. Background activity in this patient's EEG is about 8-9 Hz and 30 microvolt. It is intermixed with theta range slowing on both sides. The patient went to sleep that is associated with bilateral slowing and vertex sharp waves on both sides. Photic stimulation is unremarkable. Throughout the record, no active epileptiform activity was noticed. IMPRESSION: This patient's EEG is abnormal because it is disorganized and poorly formed. That is a nonspecific abnormality, which can occur with encephalopathy, effect of psychotropic medication, dementia, etc. Clinical correlation is recommended. <ELECTRONICALLY SIGNED> By: Keyon Burnett MD 11/22/17 1220 1520 [id number] Burnett MD /mart
== END 2017-11-15 14:48 | disposition home health service (06) | DRG 689 ==
LOC: M.ERS 10:49 → M.2W 12:59 → M.TBA-ER 12:59 → M.2W 14:28 → M.3W 11-12 15:21
PROVIDERS: Nurse Practitioner Family; ADMIT Internal Medicine
DX: N39.0 Urinary tract infection, site not specified (principal); G93.40 Encephalopathy, unspecified; E87.2 Acidosis; E11.65 Type 2 diabetes mellitus with hyperglycemia; I10 Essential (primary) hypertension; G35 Multiple sclerosis; G89.29 Other chronic pain; E11.40 Type 2 diabetes mellitus with diabetic neuropathy, unspecified; I95.9 Hypotension, unspecified; Z66 Do not resuscitate; J44.9 Chronic obstructive pulmonary disease, unspecified; F32.9 Major depressive disorder, single episode, unspecified; Z85.118 Personal history of other malignant neoplasm of bronchus and lung; Z79.2 Long term (current) use of antibiotics; Z79.82 Long term (current) use of aspirin; Z86.73 Personal history of transient ischemic attack (TIA), and cerebral infarction without residual deficits; Z79.4 Long term (current) use of insulin; Z79.899 Other long term (current) drug therapy; Z87.891 Personal history of nicotine dependence

== ENCOUNTER → 2017-11-10 | Outpatient (CLI) | payer OTHER, MEDICARE ==
[~2017-11-10] MED LIST changes: +AMITRIPTYLINE H25 M2 PO; +CENTRUM SILVER1 EAC4 PO; +FISH OIL 1,001000 M2 PO; +FLAGYL500 MG PO; +FLOMAX0.4 MG PO; +LOMOTIL TABLET1 EACH PO; +MACRODANTIN100 MG PO; +NOVOLOG100 UNIT/1 SUBQ; +NUEDEXTA 20-101 EACH PO; +PRAVACHOL40 MG PO; +TESSALON PERLE100 MG PO; +VOLTAREN GEL 1100 G2 TOP; +ZANAFLEX4 MG PO; +ZOFRAN ODT4 MG PO
== END ==
LOC: M.WC 10:00
DX: E11.622 Type 2 diabetes mellitus with other skin ulcer (principal); L89.153 Pressure ulcer of sacral region, stage 3; L98.491 Non-pressure chronic ulcer of skin of other sites limited to breakdown of skin; E11.65 Type 2 diabetes mellitus with hyperglycemia; I10 Essential (primary) hypertension; E78.2 Mixed hyperlipidemia; E03.9 Hypothyroidism, unspecified; E78.5 Hyperlipidemia, unspecified; D02.20 Carcinoma in situ of unspecified bronchus and lung; G35 Multiple sclerosis; G47.30 Sleep apnea, unspecified; J44.9 Chronic obstructive pulmonary disease, unspecified; F33.1 Major depressive disorder, recurrent, moderate; F03.90 Unspecified dementia, unspecified severity, without behavioral disturbance, psychotic disturbance, mood disturbance, and anxiety; Z87.891 Personal history of nicotine dependence; Z68.23 Body mass index [BMI] 23.0-23.9, adult; Z86.73 Personal history of transient ischemic attack (TIA), and cerebral infarction without residual deficits; Z85.89 Personal history of malignant neoplasm of other organs and systems

== ENCOUNTER → 2017-11-24 | Outpatient (CLI) | payer OTHER, MEDICARE | LOC: M.WC 02:32 | DX: E11.622 Type 2 diabetes mellitus with other skin ulcer (principal); L89.153 Pressure ulcer of sacral region, stage 3; L98.491 Non-pressure chronic ulcer of skin of other sites limited to breakdown of skin; E11.65 Type 2 diabetes mellitus with hyperglycemia; E78.2 Mixed hyperlipidemia; I10 Essential (primary) hypertension; E78.5 Hyperlipidemia, unspecified; E03.9 Hypothyroidism, unspecified; G47.30 Sleep apnea, unspecified; G35 Multiple sclerosis; J44.9 Chronic obstructive pulmonary disease, unspecified; F33.1 Major depressive disorder, recurrent, moderate; F03.90 Unspecified dementia, unspecified severity, without behavioral disturbance, psychotic disturbance, mood disturbance, and anxiety; Z85.118 Personal history of other malignant neoplasm of bronchus and lung; Z86.73 Personal history of transient ischemic attack (TIA), and cerebral infarction without residual deficits; Z68.23 Body mass index [BMI] 23.0-23.9, adult; Z87.891 Personal history of nicotine dependence ==